=== PATIENT | female | born 1955 | race Caucasian/White ===

== ENCOUNTER → 2020-11-26 | Outpatient (CLI) | payer BC ==
[~2020-11-26] MED LIST: SYNTHROID25 MCG PO
== END ==
LOC: HEART 5 14:24
DX: R00.1 Bradycardia, unspecified (principal)

== ENCOUNTER → 2021-04-09 | Outpatient (CLI) | payer BC | LOC: US 10:19 | DX: R94.5 Abnormal results of liver function studies (principal); K76.0 Fatty (change of) liver, not elsewhere classified | CPT/HCPCS: 76700 ==

== ENCOUNTER → 2021-05-14 | Outpatient (CLI) | payer BC | LOC: US 10:50 | DX: R22.31 Localized swelling, mass and lump, right upper limb (principal) | CPT/HCPCS: 93971 ==

== ENCOUNTER → 2021-08-09 | Outpatient (CLI) | payer BC | LOC: RAD 13:42 | DX: M25.512 Pain in left shoulder (principal) | CPT/HCPCS: 73030 ==